=== PATIENT | female | born 1975 | race Two or more races ===

== ENCOUNTER 2017-08-14 13:13 | Emergency (ER) | payer BC ==
--- NOTE | 2017-08-14 13:22 | EDM.PDOC ---
ED HPI GENERAL MEDICAL PROBLEM - General Chief Complaint: Abdominal Pain Stated Complaint: POSS. KIDNEY STONE-SENT BY [facility] Time Seen by Provider: 08/14/17 13:21 Source of Information: Reports: Patient History Limitations: Reports: No Limitations - History of Present Illness INITIAL COMMENTS - FREE TEXT/NARRATIVE: Chelsea is a 42yo female here with lower abdominal pain starting yesterday morning, worsening last evening and was "severe" for about 2 hours from around 5pm to 7pm last evening. She was able to sleep last night but lower abd pain/ suprapubic pain did wake her on occasion. She went to [facility] this morning at around 0830, was told she had large amt of blood in her urine and likely was kidney stone. Their poultry service technician was off so they were unable to perform CT scan. She was told if pain worsened she was to come to ED today or to her PCP tomorrow. She has no back pain. She denies f/c/s, no n/v/d. She has no hx of nephrolithiasis. She is s/p hysterectomy so no longer has menses. She took 600mg of motrin after being seen at [facility] this morning with minimal relief. She is just "uncomfortable", states hurts to lay and hurts to sit so she stands but is also just generally uncomfortable to her lower abdomen/pelvis region. Onset: Gradual Duration: Day(s): (2) Location: Reports: Abdomen, Pelvis Quality: Reports: Pressure, Sharp Severity: Moderate Improves with: Reports: Movement Worsens with: Reports: Other (laying flat) Associated Symptoms: Reports: No Other Symptoms Treatments CLINICAL PRODUCT MANAGER: Reports: NSAIDS Lower Abdomen Pain Score (Numeric/FACES): 2 - Related Data Allergies Allergy/AdvReac Type Severity Reaction Status Date / Time No Known Allergies Allergy Verified 08/14/17 13:34 Home Meds: Home Meds Levothyroxine Sodium 125 mcg PO DAILY 10/24/14 [History] Ibuprofen [Motrin] 200 - 800 mg PO Q6H #50 tablet 04/29/15 [Rx] Past Medical History Other HEENT History: wears glasses Other Cardiovascular History: svt in 1996, fixed with ablation. Other OB/BYN History: heavy menses Social & Family History - Tobacco Use Smoking Status *Q: Current Every Day Smoker Years of Tobacco use: 20 Second Hand Smoke Exposure: Yes - Alcohol Use Days Per Week of Alcohol Use: 1 Number of Drinks Per Day: 1 Total Drinks Per Week: 1 - Recreational Drug Use Recreational Drug Use: No Drug Use in Last 12 Months: No ED ROS GENERAL - Review of Systems Review Of Systems: See Below Constitutional: Reports: No Symptoms HEENT: Reports: No Symptoms Respiratory: Reports: No Symptoms Cardiovascular: Reports: No Symptoms GI/Abdominal: Reports: Abdominal Pain (lower). Denies: Black Stool, Bloody Stool, Constipation, Diarrhea, Decreased Appetite, Hematemesis, Hematochezia, Melena, Nausea, Vomiting : Reports: Hematuria (noted sarai blood in urine last night with increased pain episode around 5pm. Also noted blood this morning. ), Pain. Denies: Discharge, Dysuria, Flank Pain, Frequency, Urgency, Urinary Retention Musculoskeletal: Reports: No Symptoms Neurological: Reports: No Symptoms Psychiatric: Reports: No Symptoms ED EXAM, GI/ABD - Physical Exam Exam: See Below Exam Limited By: No Limitations General Appearance: Alert, WD/WN, No Apparent Distress Eyes: Bilateral: EOMI Ears: Normal External Exam, Hearing Grossly Normal Nose: Normal Inspection Throat/Mouth: Normal Inspection, Normal Lips, Normal Teeth, Normal Voice Head: Atraumatic, Normocephalic Neck: Normal Inspection Respiratory/Chest: No Respiratory Distress, Lungs Clear, Normal Breath Sounds Cardiovascular: Normal Peripheral Pulses, Regular Rate, Rhythm, No Edema, No Murmur GI/Abdominal Exam: Normal Bowel Sounds, Soft. No: Guarding, Rigid, Rebound, Tender Rectal (Female) Exam: Deferred Back Exam: Normal Inspection Extremities: Normal Inspection, Normal Capillary Refill Neurological: Alert, Oriented, Normal Cognition Psychiatric: Normal Affect, Normal Mood Skin Exam: Warm, Dry, Intact Course - Vital Signs Last Recorded V/S: Last Vital Signs Temp 98.1 F 08/14/17 13:35 Pulse 66 08/14/17 13:35 Resp 16 08/14/17 13:35 BP 130/85 08/14/17 13:35 Pulse Ox 96 08/14/17 13:35 - Re-Assessments/Exams Free Text/Narrative Re-Assessment/Exam: 08/14/17 13:36 Call placed to [facility]; confirmed that patient was there this morning, was instructed to push fluids, tylenol/motrin. If pain worsened to seek tx in ED, otherwise to f/up with PCP Tuesday for further eval and possible CT scan. Patient is wishing CT scan to r/o kidney stone today. Will request records from [facility] to review UA. Free Text/Narrative Re-Assessment/Exam: 08/14/17 15:28 CT of abdomen and pelvis without contrast is reviewed with Dr. Ledesma. Small stones present in both renal cortex. Small stone to right mid ureter, no hydronephrosis noted. Will await final Radiologist interp. Patient informed of results, reviewed push fluids, cont tylenol/motrin. Heating pad may be of benefit to back. These are small enough they should pass on their own. Follow up with PCP if needed for worsening pain or can return to ED if needed. Departure - Departure Time of Disposition: 15:30 Disposition: Home, Self-Care 01 Clinical Impression: Nephrolithiasis - Discharge Information Instructions: Abdominal Pain, Adult, [id number], Hematuria, Adult Referrals: Valerie Henao MD [Primary Care Provider] - Forms: ED Department Discharge Additional Instructions: Reviewed to push fluids, tylenol and/or motrin as needed for pain/discomfort. Heating pad may be beneficial. Follow up with PCP if pain worsens or other concerns; you can also return to ER if needed.
[2017-08-14 13:39] VITALS: BP 130/85
--- NOTE | 2017-08-14 15:17 | CT ---
CT abdomen and pelvis Technique: Multiple axial sections were obtained from the top the liver inferiorly through the pubic symphysis. Intravenous and oral contrast was not utilized. Study has been performed as a ureteral stone protocol. Findings: Several small nonobstructing calculi are seen within both kidneys. No ureteral dilatation is seen. There is a calcifications seen within the pelvis most likely due to vascular calcification although it does lie very close to the ureter but felt not to represent a ureteral stone as no significant ureteral dilatation is seen. Small portion the visualized lung bases shows nothing acute. Noncontrast CT appearance of the visualized liver is within normal limits. Spleen appears within normal limits. Adrenal glands show no nodule. Pancreas is within normal limits. Gallbladder contains no calcified gallstones. Aorta shows no aneurysmal dilatation. No retroperitoneal adenopathy is seen. No mesenteric abnormalities are seen. Cyst is identified within the right side of the pelvis which is felt to be ovarian in etiology measuring 4.6 cm. No additional abnormality is seen within the pelvis. No inflammatory change or free fluid is seen. Bone window settings were reviewed which appears within normal limits for the patient's age. Impression: 1. Calcification within the pelvis believed to be vascular. As mentioned above, this lies very close to the right ureter but felt not to be ureteral in location as no significant ureteral dilatation is seen. 2. Several nonobstructing calculi are noted within both kidneys. 3. Cyst noted within the right pelvis most likely ovarian in etiology measuring 4.6 cm. Recommend follow-up pelvic ultrasound in 4 months to make sure this does not persist or get larger. Diagnostic code #3
== END 2017-08-14 15:26 | disposition home or self-care (01) ==
LOC: JD.ED 13:13
DX: N20.0 Calculus of kidney (principal); N94.89 Other specified conditions associated with female genital organs and menstrual cycle; F17.210 Nicotine dependence, cigarettes, uncomplicated; Z79.899 Other long term (current) drug therapy
CPT/HCPCS: 74176; 74176-26; 99283; 99284-25